=== PATIENT | female | born 1980 | race Caucasian/White ===

== ENCOUNTER → 2018-07-31 14:44 | Outpatient (ROUT) | payer OTHER, SELFPAY ==
[2018-07-31 15:34] LABS: Creatinine Urine Random 107.4 mg/dL
[2018-07-31 15:39] LABS: Microalbumi Creatinin Ratio Ur 28.8 ug/mg CR (<30); Microalbumin Urine Random 3.1 mg/dL (0-1.6)
== END ==
PROVIDERS: PCP Family Medicine; Visit Provider Family Medicine
DX: E11.69 Type 2 diabetes mellitus with other specified complication (principal); E66.9 Obesity, unspecified
CPT/HCPCS: 82043; 82570